=== PATIENT | male | born 1955 | race Caucasian/White ===

== ENCOUNTER 2021-11-23 21:41 | Emergency (ER) | payer MEDICARE ==
[~2021-11-23] VITALS: Ht 182.9 cm; Wt 90.7 kg
[2021-11-23 22:40] LABS: BASOPHIL 0.2 % (0-2); EOSINOPHIL 0.1 % (0-7); HCT 31.4 % (42.0-52.0); HGB 11.8 g/dl (13.2-18.0); LYMPHOCYTE 3.5 % (15-48); MCHC 37.6 g/dL (32.0-36.0); MCV 87.7 fL (78.0-100.0); MONOCYTE 3.6 % (0-12); MPV 11.8 fL (6.0-9.5); NRBC 0.1; PLT 140 K/uL (150-400); RBC 3.58 M/uL (4.70-6.00); RDW 11.5 % (11.5-14.0); WBC 15.4 K/uL (4.0-10.5)
[2021-11-23 22:54] LABS: ALBUMIN 2.6 g/dL (3.4-5.0); BILIRUBIN - TOTAL 2.4 mg/dL (0.2-1.0); BUN/CREAT RATIO (CALC) 14.3 RATIO; CREATININE 4.05 mg/dL (0.67-1.17); GLOBULIN (CALCULATION) 3.2 g/dL; MAGNESIUM 2.6 mg/dL (1.8-2.4); POTASSIUM 3.9 mmol/L (3.5-5.1); TOTAL PROTEIN 5.8 g/dL (6.4-8.2)
[2021-11-23 22:58] LABS: NEUTROPHIL 90.1 % (41-80)
[2021-11-23 23:05] LABS: INR 1.38 (0.9-1.2); PROTHROMBIN TIME 16.3 SECONDS (11.8-13.4); PTT 32.7 SECONDS (24.4-34.7)
[2021-11-23 23:09] LABS: LACTIC ACID 6.7 mmol/L (0.4-1.9)
[2021-11-23 23:41] LABS: BILIRUBIN NEGATIVE (NEGATIVE); BLOOD NEGATIVE Ery/uL (NEGATIVE); CLARITY CLEAR (CLEAR); COLOR YELLOW (YELLOW); GLUCOSE (U) NORMAL (NORMAL); LEUKOCYTES NEGATIVE Leu/uL (NEGATIVE); NITRITE NEGATIVE (NEGATIVE); PROTEIN TRACE (LOW) mg/dL (NEGATIVE); SPECIFIC GRAVITY 1.015 (1.001-1.030)
[2021-11-23 23:50] LABS: AMPHETAMINES NEGATIVE (NEGATIVE); BARBITURATES NEGATIVE (NEGATIVE); ECSTASY (MDMA) NEGATIVE (NEGATIVE); MARIJUANA (THC) NEGATIVE (NEGATIVE); METHADONE NEGATIVE (NEGATIVE); OPIATES NEGATIVE (NEGATIVE); OXYCODONE NEGATIVE (NEGATIVE)
[2021-11-24 00:05] LABS: BUN/CREAT RATIO (CALC) 14.4 RATIO; CREATININE 3.69 mg/dL (0.67-1.17)
[2021-11-24 00:17] LABS: INFLUENZA A NAA NEGATIVE (NEGATIVE)
[2021-11-24 00:23] LABS: CORONAVIRUS 2019 SARS-COV-2 POSITIVE (NEGATIVE)
[2021-11-24 04:30] LABS: BUN/CREAT RATIO (CALC) 15.3 RATIO; CREATININE 3.93 mg/dL (0.67-1.17)
[2021-11-24 04:33] LABS: POTASSIUM 2.3 mmol/L (3.5-5.1)
[2021-11-24 12:27] LABS: CREATININE 3.75 mg/dL (0.67-1.17)
[2021-11-24 12:39] LABS: POTASSIUM 4.2 mmol/L (3.5-5.1)
[2021-11-24 18:09] LABS: HCT 35.3 % (42.0-52.0); HGB 13.4 g/dl (13.2-18.0); MCH 32.9 pg (25.0-31.0); MCV 86.7 fL (78.0-100.0); MPV 12.2 fL (6.0-9.5); RBC 4.07 M/uL (4.70-6.00); RDW 11.8 % (11.5-14.0)
[2021-11-24 18:16] LABS: WBC 34.3 K/uL (4.0-10.5)
[2021-11-24 18:17] LABS: BUN/CREAT RATIO (CALC) 15.2 RATIO; CREATININE 3.61 mg/dL (0.67-1.17); POTASSIUM 4.2 mmol/L (3.5-5.1)
[2021-11-24 18:25] LABS: MAGNESIUM 3.4 mg/dL (1.8-2.4)
== END 2021-11-24 22:27 | disposition expired ==
LOC: FER 21:41 → FMS 11-24 21:17 → FER 11-24 21:17 → FMS 11-24 22:27 → FER 11-24 22:27
PROVIDERS: Internal Medicine
DX: A41.9 Sepsis, unspecified organism (principal); R65.21 Severe sepsis with septic shock; R57.0 Cardiogenic shock; U07.1 COVID-19; J12.82 Pneumonia due to coronavirus disease 2019; J96.01 Acute respiratory failure with hypoxia; E16.2 Hypoglycemia, unspecified; I10 Essential (primary) hypertension
CPT/HCPCS: 36415; 36600; 70450; 71045; 71250; 72125; 80048; 80053; 80305; 81003; 82550; 82803; 83605; 83735; 83880; 84145; 84484; 85025; 85610; 85730; 87040; 93005; 96365; 96366; 96367; 96372; 96375; 96376; G0480; J0692; J1100; J1170; J1610; J1644; J1720; J2060; J2250; J3010; J3370; J3411; J3475; J3480; J7030; J7050; J7131; U0002